=== PATIENT | male | born 1995 | race Caucasian/White ===

== ENCOUNTER 2020-06-13 18:37 | Emergency (ER) | payer OTHER ==
[~2020-06-13] VITALS: Ht 182.9 cm; Wt 77.0 kg
[2020-06-13 18:37] VITALS: BP 143/100
[2020-06-13] MEDS ORDERED: DEXAMETHASONE SOD PHOS 10 MG/ML VIAL. ONE (18:43)
[2020-06-13] MEDS ORDERED: FAMOTIDINE 20 MG/2 ML VIAL ONE (18:44)
[2020-06-13] MEDS ORDERED: diphenhydrAMINE 50 MG/ML VIAL ONE (18:44)
--- NOTE | 2020-06-13 20:34 | PHYS DOC ---
Past History Past Medical History: No Pertinent History (CHANELLE TOLENTINO APRN) Past Surgical History: No Surgical History (CHANELLE TOLENTINO APRN) Alcohol Use: None (CHANELLE TOLENTINO APRN) Adult General Chief Complaint Chief Complaint: ALLERGIC REACTION HPI HPI Patient is a 25-year-old male presents emergency department complaining of allergic reaction after eating what he thinks food containing peanuts. 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 Patient states he was eating [place] food when he noticed his mouth started to become tingly and his throat started to become scratchy within 5 minutes of starting to eat. Patient states he did not finish his dinner, noting that he knows he is allergic to peanuts and came straight to the emergency department. Patient states that his father who was with him had 1 tablet of 25 mg Benadryl with him which he took in route to the ER. Patient denies any shortness of breath, rashes, itching, feels as if his lips are getting swollen, feels like he might have a rash on his lips, denies chest pain, chest palpitations. Patient denies neurological changes. Patient states he does have an EpiPen but does not feel as if he needs to use it at this time. Patient denies any other physical complaints or physical symptoms. (CHANELLE TOLENTINO APRN) Review of Systems Review of Systems 14 body systems of review of systems have been reviewed. See HPI for pertinent positives and negative responses, otherwise all other systems are negative, nonpertinent or noncontributory. (CHANELLE TOLENTINO APRN) Current Medications Current Medications Current Medications Medications (Trade) Dose Ordered Sig/Baron Start Time Stop Time Status Last Admin Dose Admin Dexamethasone Sodium Phosphate (Decadron) 10 mg STK-MED ONCE 06/13/20 18:43 06/13/20 18:44 DC Diphenhydramine HCl (Benadryl) 50 mg STK-MED ONCE 06/13/20 18:44 06/13/20 18:45 DC Epinephrine HCl (EPINEPHrine AMPULE) 0.3 mg 1X ONCE 06/13/20 19:00 06/13/20 19:01 DC 06/13/20 19:04 0.3 MG Famotidine (Pepcid Vial) 20 mg STK-MED ONCE 06/13/20 18:44 06/13/20 18:44 DC (CHANELLE TOLENTINO APRN) Allergies Allergies Allergies Coded Allergies Type Severity Reaction Last Updated Verified codeine Allergy Intermediate 06/13/20 Yes (CHANELLE TOLENTINO APRN) Physical Exam Physical Exam Constitutional: Well developed, well nourished, no acute distress, non-toxic appearance. HENT: Normocephalic, atraumatic, bilateral external ears normal, oropharynx moist, no oral exudates, nose normal. Lower left-sided lip swelling, no rash appreciated, slightly erythematous oropharynx, no uvular edema, no tonsillar edema, no cobblestoning appreciated, no postnasal drip appreciated, no deep tissue infection appreciated. Eyes: PERRLA, EOMI, conjunctiva normal, no discharge. Neck: Normal range of motion, no tenderness, supple, no stridor. Cardiovascular:Heart rate regular rhythm, no murmur Lungs & Thorax: Bilateral breath sounds clear to auscultation all lung rosen, no adventitious lung sounds appreciated Abdomen: Bowel sounds normal, soft, no tenderness, no masses, no pulsatile masses. Skin: Warm, dry, no erythema, no rash. Other than erythematous rash at lip edges just past the vermilion border on left lower side of lip. Back: No tenderness, no CVA tenderness. Extremities: No tenderness, no cyanosis, no clubbing, ROM intact, no edema. Neurologic: Alert and oriented X 3, normal motor function, normal sensory function, no focal deficits noted. Psychologic: Affect normal, judgement normal, mood normal. (CHANELLE TOLENTINO APRN) Current Patient Data Vital Signs Vital Signs Date Time Temp Pulse Resp B/P (MAP) Pulse Ox O2 Delivery O2 Flow Rate FiO2 06/13/20 18:37 97.3 122 16 143/100 (114) 100 Room Air (CHANELLE TOLENTINO APRN) EKG EKG [] (CHANELLE TOLENTINO APRN) Radiology/Procedures Radiology/Procedures [] (CHANELLE TOLENTINO APRN) Heart Score Risk Factors: Risk Factors: DM, Current or recent (<one month) smoker, HTN, HLP, family history of CAD, obesity. Risk Scores: Risk Factors: DM, Current or recent (<one month) smoker, HTN, HLP, family history of CAD, obesity. (CHANELLE TOLENTINO APRN) Course & Med Decision Making Course & Med Decision Making Pertinent Labs and Imaging studies reviewed. (See chart for details) 25-year-old male, vital signs reviewed and stable, presents to the emergency department after eating a food product she believes contained peanuts, patient states she started having allergic reaction, knowing that he has had an anaphylactic attack in the past, came straight to the emergency department. Patient pretreated with 25 mg p.o. Benadryl in route. Upon arrival to the emergency department, patient had lower lip swelling with minor rash, did co mplain of throat scratchiness however there was no airway compromise appreciated upon visual and auscultation exam. The patient was started on 50 mg IV Benadryl, 40 mg IV Pepcid, 10 mg IV Decadron, 1 L normal saline. The patient was given 0.3 mg subcu epinephrine. ED plan to monitor patient for airway compromise and further exacerbation of allergic reaction. After 1 hour, reexamination found patient in no apparent distress, all allergic reaction signs and symptoms had resolved, discussed with patient will watch another hour and discuss DC planning. After 1 more additional hour, reexam of patient palpation no apparent distress, no allergic reaction signs and symptoms noted, discussed with patient and recommended 1 more hour of observation, patient felt that he is feeling much better now and is very aware of his allergic reaction signs and symptoms, states that he will come back immediately if symptoms return, states he does have EpiPen with him and will use if needed. The patient and I made a joint decision for the patient to go home at this time, patient's signs and symptoms of allergic reaction have resolved, patient states he will take Benadryl after 8- hour period from what was given IV in the ED, will take another 20 mg dose of Pepcid p.o. in the morning. Patient gave verbal understanding of discharge home instructions follow-up with primary care as needed, strict return to emergency department precautions, patient was discharged home without incident. (CHANELLE TOLENTINO APRN) Course & Med Decision Making Did not see or evaluate patient. Agree with [facility]'s work-up and disposition per note. (RAJAN PAGE MD) Dragon Disclaimer Dragon Disclaimer This electronic medical record was generated, in whole or in part, using a voice recognition dictation system. (CHANELLE TOLENTINO APRN) Departure Departure: Impression: Primary Impression: Allergic reaction Disposition: 01 DC HOME SELF CARE/HOMELESS Condition: GOOD Referrals: ALETA ABDALLA APRN-[facility] (PCP) Patient Instructions: Food Allergy Additional Instructions: We have discussed you taking an additional dose of Benadryl on 06/14/2020 between the hours of 1 AM and 3 AM, we also discussed taking an additional dose of Pepcid 20 mg at 7 AM tomorrow morning on 06/14/2020. If any of your allergic reaction symptoms return, please return to the emergency department immediately, if you fear and airway compromise please do not hesitate to use your prescribed EpiPen at home prior to coming to the emergency department. Please return to the emergency department for worsening symptoms or other concerns. EMERGENCY DEPARTMENT GENERAL DISCHARGE INSTRUCTIONS Thank you for coming to [facility] (ED) today and trusting us with you care. We trust that you had a positivie experience in our Emergency Department. If you wish to speak to the department management, you may call the director at [phone]. YOUR FOLLOW UP INSTRUCTIONS ARE FOLLOWS: 1. Do you have a private Doctor? If you do not have a private doctor, please ask for a resource list of physicians or clinics that may be able to assist you with follow up care. 2. The Emergency Physician has interpreted your x-rays. The X-Ray specialist will also review them. If there is a change in the findings, you will be notified in 48 hours when at all possible. 3. A lab test or culture has been done, your results will be reviewed and you will be notified if you need a change in treatment. ADDITIONAL INSTRUCTIONS AND INFORMATION: 1. Your care today has been supervised by a physician who is specially trained in emergency care. Many problems require more than one evaluation for a complete diagnosis a nd treatment. We recommend that you schedule your follow up appointment as recommended to ensure complete treatment of you illness or injury. If you are unable to obtain follow up care and continue to have a problem, or if your condition worsens, we recommend that you return to the ED. 2. We are not able to safely determine your condition over the phone nor are we able to give sound medical advice over the phone. For these safety reasons, if you call for medical advice we will ask you to come to the ED for further evaluation. 3. If you have any questions regarding these discharge instructions please call the ED at [phone]. SAFETY INFORMATION: In the interest of safety, wellness, and injury prevention; we encourage you to wear your sealbelt, if you smoke; quite smoking, and we encourage family to use a protective helmet for bicycling and other sporting events that present an increased risk for head injury. IF YOUR SYMPTOMS WORSEN OR NEW SYMPTOMS DEVELOP, OR YOU HAVE CONCERNS ABOUT YOUR CONDITION; OR IF YOUR CONDITION WORSENS WHILE YOU ARE WAITING FOR YOUR FOLLOW UP APPOINTMENT; EITHER CONTACT YOUR PRIMARY CARE DOCTOR, THE PHYSICIAN WHOSE NAME AND NUMBER YOU WERE GIVEN, OR RETURN TO THE ED IMMEDIATELY. Problem Qualifiers Primary Impression: Allergic reaction Encounter type: initial encounter Qualified Codes: T78.40XA - Allergy, unspecified, initial encounter CHANELLE TOLENTINO APRN Jun 13, 2020 20:33 RAJAN PAGE MD Jun 13, 2020 23:37
== END 2020-06-13 20:40 | disposition home or self-care (01) ==
LOC: ER 18:37
DX: T78.1XXA Other adverse food reactions, not elsewhere classified, initial encounter (principal); Z88.5 Allergy status to narcotic agent; Z91.010 Allergy to peanuts; Y92.89 Other specified places as the place of occurrence of the external cause
CPT/HCPCS: 96372; 99283; J0171